=== PATIENT | female | born 1995 | race Two or more races ===

== ENCOUNTER 2017-02-13 14:46 | Emergency (ER) | payer MEDICAID ==
[~2017-02-13] VITALS: Ht 157.5 cm; Wt 71.7 kg
[2017-02-13 15:26] VITALS: BP 117/74
== END 2017-02-13 15:51 | disposition home or self-care (01) ==
LOC: ER 14:46
DX: D17.0 Benign lipomatous neoplasm of skin and subcutaneous tissue of head, face and neck (principal); J45.909 Unspecified asthma, uncomplicated

== ENCOUNTER 2017-12-08 22:58 | Emergency (ER) | payer SELFPAY ==
[~2017-12-08] VITALS: Ht 157.5 cm; Wt 71.2 kg
[2017-12-09 05:44] LABS: Urine Bacteria FEW /hpf (None Seen); Urine Blood Negative /uL (Negative); Urine Specific Gravity 1.008 (1.001-1.035); Urine WBC 2 /hpf (0 - 5)
[2017-12-09 05:49] LABS: Basophils # (auto) 0 uL; Basophils % (auto) 0.5 % (0.0-2.0); Eosinophils # (auto) 0.2 uL; Lymphocytes # (auto) 3.5 uL; Mean Corpuscular Volume 82.4 fL (80.0-100.0); White Blood Cell 8.2 10^3/uL (4.4-10.8)
[2017-12-09 05:51] LABS: Eosinophils % (auto) 2.4 % (0.0-7.0); Hematocrit 37.9 % (36.0-46.0); Hemoglobin 12.4 g/dL (12.2-16.2); Mean Corpuscular Hemoglobin 26.8 pg (28.0-32.0); Mean Corpuscular Hgb Conc. 32.6 g/dL (32.0-36.0); Monocytes # (auto) 0.6 uL; Monocytes % (auto) 6.7 % (0.0-12.0); Neutrophils % (auto) 48.4 % (37.0-80.0); Nucleated Red Blood Cells % 0.1 %; Platelet Count (auto) 302 10^3/uL (140-450); Red Blood Cells 4.61 10^6/uL (4.0-5.20); Red Cell Distribution Width 16.5 % (11.8-14.3)
[2017-12-09 06:09] LABS: Albumin 3.9 g/dL (3.4-5.0); Anion Gap 9 (5-15); Blood Urea Nitrogen 8 mg/dL (7-18); Calcium 8.7 mg/dL (8.5-10.1); Carbon Dioxide 25 mmol/L (21-32); Chloride 106 mmol/L (98-107); Glucose 94 mg/dL (74-106); Magnesium 2.1 mg/dL (1.6-2.6); Sodium 140 mmol/L (136-145)
[2017-12-09 06:11] LABS: Alanine Aminotransferase 27 U/L (13-56); Aspartate Aminotransferase 18 U/L (15-37); BUN/Creatinine Ratio 12.1; GFR African American 145 mL/min; GFR Non-African American 120 mL/min
[2017-12-09 06:16] LABS: Alkaline Phosphatase 107 U/L (45-117); Bilirubin, Total 0.2 mg/dL (0.2-1.0); Total Protein 8.1 g/dL (6.4-8.2)
[2017-12-09 08:30] VITALS: BP 114/54
== END 2017-12-09 09:24 | disposition home or self-care (01) ==
LOC: ER 22:58
DX: N39.0 Urinary tract infection, site not specified (principal); J45.909 Unspecified asthma, uncomplicated; Z90.89 Acquired absence of other organs
CPT/HCPCS: 36415; 80053; 81001; 81025; 83735; 84484; 85025

== ENCOUNTER → 2019-09-18 | Emergency (ER) | payer SELFPAY ==
[~2019-09-18] VITALS: Ht 157.5 cm; Wt 81.6 kg
[~2019-09-18] MED LIST: KETOROLAC TROMETH 60MG/2ML VIAL IM ONE; METHOCARBAMOL 500 MG TAB PO ONE
[2019-09-18 15:53] VITALS: BP 114/66
== END | disposition home or self-care (01) ==
LOC: ER 15:40
DX: M43.6 Torticollis (principal); J45.909 Unspecified asthma, uncomplicated
CPT/HCPCS: 96372; 99283; J1885